=== PATIENT | female | born 1990 | race Caucasian/White ===

== ENCOUNTER 2016-12-20 23:52 | Emergency (ER) | payer BC ==
[~2016-12-20 23:52] MED LIST: BACT800T5 PO; DOXY1CAP74 PO; LO LTAB PO
[2016-12-20 23:54] VITALS: BP 130/81; PULSE 79; RESP 16; TEMP 98; O2SAT 98
[2016-12-21] MEDS ORDERED: ONDANSETRON HCL 4 MG/2 ML VIAL IV ONE (01:00)
[2016-12-21] MEDS ORDERED: SODIUM CHLOR 0.9% 1000 ML INJ 1,000 ML IV ONE ×2 (01:00→03:00)
--- NOTE | 2016-12-21 01:00 | PD ---
HPI Chief Complaint: GI Complaint Time Seen by Provider: 00:45 Travel History International Travel<30 days: No Contact w/Intl Traveler<30days: No Traveled to known affect area: No History of Present Illness HPI The patient is a 25 year old female who presents to the [facility] emergency department with a history of recent relapsing with polysubstance abuse. The patient reports that she became concerned when she developed nausea and vomiting over the last 4 days that has been intractable. She reports that she's had nausea and vomiting intermittently related to her opiate use and cocaine use, however this has been persistent. She reports that she has not been able to keep down any liquids. She reports that today she's had nausea and vomiting 6. She denies having any diarrhea. Her last bowel movement was reportedly 5 days ago. She reports that she had been clean of using drugs for 10 months when she relapsed. She reports that she has been using heroin, Dilaudid, methamphetamines, and cocaine. On review of systems, she reports that she gets chest pain and shortness of breath with the nausea and vomiting. Otherwise, the patient denies any fevers, cough, congestion, neck pain, abdominal pain, urinary symptoms, or neurologic symptoms. The patient reports that she last used IV heroin and methamphetamine a few hours prior to arrival. LMP: Approximately a month ago [facility] Past Medical History Narrative Medical The patient's past medical history is significant for polysubstance abuse since 20 years of age. Medical History: Denies Significant Hx Diminished Hearing: No ?: Unknown LMP: 11/18/16 Past Surgical History Narrative Surgical The patient's past surgical history is significant for wisdom teeth extraction. Surgical History: No Previous Surgery Social History Alcohol Use: No Tobacco Use: No Substance Use: Yes (OPIATES, HERION, CRACK/COCAINE, METH ) Allergies-Medications (Allergen,Severity, Reaction): Coded Allergies: No Known Allergies (Unverified , 11/09/16) Reported Meds & Prescriptions Reported Meds & Active Scripts Active Bactrim DS (Sulfamethoxazole-Trimethoprim) 800-160 Mg Tab 1 Tab PO BID Reported Doxycycline 40 Mg Cap 40 Mg PO DAILY Lo Loestrin Fe 10 (Norethindrone-Ethinyl Estradiol-Fe) 1-10 Mg-Mcg Tab 1 Tab PO DAILY Narrative Medication doxy for acne. Review of Systems Except as stated in HPI: all other systems reviewed are Neg General / Constitutional: No: Fever Eyes: No: Visual changes HENT: No: Headaches Cardiovascular: No: Chest Pain or Discomfort Respiratory: No: Shortness of Breath Gastrointestinal: Positive: Nausea, Vomiting, Abdominal Pain, Constipation, Changes in Bowel Habits, No: Diarrhea, Hematemesis, Hematochezia, Indigestion, Loss of Appetite Genitourinary: No: Dysuria Musculoskeletal: No: Pain Skin: No Rash Neurologic: No: Weakness Psychiatric: No: Depression Endocrine: No: Polydipsia Hematologic/Lymphatic: No: Easy Bruising Physical Exam Narrative General: The patient is well-developed well-nourished female in no acute distress. Head and Neck exam: Head is normocephalic atraumatic. Eyes: EOMI, pupils are equal round and reactive to light. Nose: Midline septum with pink mucous membranes Mouth: Dentition unremarkable. Moist mucus membranes. Posterior oropharynx is not erythematous. No tonsillar hypertrophy. Uvula midline. Airway patent. Neck: No palpable lymphadenopathy. No nuchal rigidity. No thyromegaly. No spinous process tenderness to palpation, no step-off or crepitus, no erythema or ecchymosis. Cardiovascular: Regular rate and rhythm without murmurs, gallops, or rubs. No pulse deficit to the extremities. Lungs: Clear to auscultation bilaterally. No wheezes, rhonchi, or rales. Abdomen: Soft, with midepigastric discomfort on palpation, no other tenderness on palpation of the other quadrants of the abdomen. No guarding, rebound, or rigidity. No tenderness on palpation of McBurney's point. Normal bowel sounds are audible. Negative [place] sign. Extremities: No clubbing, cyanosis, or edema. 2+ pulses in all 4 extremities. No calf tenderness on palpation. Back: No spinous process tenderness to palpation. No costovertebral angle tenderness to palpation. Neurologic Exam: Grossly nonfocal. Skin Exam: No rash noted. Intact skin that is warm and dry. Data Data Last Documented VS Vital Signs Date Time Temp Pulse Resp B/P Pulse Ox O2 Delivery O2 Flow Rate FiO2 12/21/16 01:07 18 99 Room Air 12/20/16 23:54 98.0 79 130/81 Orders Complete Blood Count With Diff (12/21/16 00:47) Comprehensive Metabolic Panel (12/21/16 00:47) Lipase (12/21/16 00:47) Urinalysis - C+S If Indicated (12/21/16 00:47) W[place]gren Sedimentation Rate (12/21/16 00:47) Magnesium (Mg) (12/21/16 00:47) Chest, Single Ap (12/21/16 00:47) Iv Access Insert/Monitor (12/21/16 00:47) Ecg Monitoring (12/21/16 00:47) Oximetry (12/21/16 00:47) Ed Urine Pregnancytest Poc (12/21/16 00:47) Drug Screen, Random Urine (12/21/16 00:47) Alcohol (Ethanol) (12/21/16 00:47) Sodium Chlor 0.9% 1000 Ml Inj (Ns 1000 M (12/21/16 01:00) Ondansetron Inj (Zofran Inj) (12/21/16 01:00) Labs Laboratory Tests Test 12/21/16 01:04 White Blood Count 10.6 TH/MM3 Red Blood Count 4.64 MIL/MM3 Hemoglobin 13.5 GM/DL Hematocrit 39.5 % Mean Corpuscular Volume 85.1 FL Mean Corpuscular Hemoglobin 29.2 PG Mean Corpuscular Hemoglobin 34.3 % Concent Red Cell Distribution Width 12.0 % Platelet Count 315 TH/MM3 Mean Platelet Volume 7.4 FL Neutrophils (%) (Auto) 75.8 % Lymphocytes (%) (Auto) 11.9 % Monocytes (%) (Auto) 10.8 % Eosinophils (%) (Auto) 0.8 % Basophils (%) (Auto) 0.7 % Neutrophils # (Auto) 8.0 TH/MM3 Lymphocytes # (Auto) 1.3 TH/MM3 Monocytes # (Auto) 1.1 TH/MM3 Eosinophils # (Auto) 0.1 TH/MM3 Basophils # (Auto) 0.1 TH/MM3 CBC Comment DIFF FINAL Differential Comment Erythrocyte Sedimentation Rate 19 mm/hr Sodium Level 135 MEQ/L Potassium Level 4.3 MEQ/L Chloride Level 95 MEQ/L Carbon Dioxide Level 28.7 MEQ/L Anion Gap 11 MEQ/L Blood Urea Nitrogen 22 MG/DL Creatinine 1.02 MG/DL Estimat Glomerular Filtration 67 ML/MIN Rate Random Glucose 78 MG/DL Calcium Level 9.5 MG/DL Magnesium Level 2.4 MG/DL Total Bilirubin 2.2 MG/DL Aspartate Amino Transf 38 U/L (AST/SGOT) Alanine Aminotransferase 34 U/L (ALT/SGPT) Alkaline Phosphatase 76 U/L Total Protein 8.9 GM/DL Albumin 4.2 GM/DL Lipase 87 U/L Ethyl Alcohol Level LESS THAN 3 MG/DL MDM Medical Decision Making Medical Screen Exam Complete: Yes Emergency Medical Condition: Yes Medical Record Reviewed: Yes Interpretation(s) Last Impressions Chest X-Ray 12/21/16 0047 Signed Impressions: Service Date/Time: Wednesday, December 21, 2016 01:06 - CONCLUSION: Normal examination for a patient of this age. Efrain Harding MD Differential Diagnosis Electrolyte derangements, versus dehydration, versus viral syndrome Narrative Course During the course of the patients emergency department visit, the patients history, examination, and differential diagnosis were reviewed with the patient. The patient had IV access obtained and blood work sent for analysis. The patient was placed on a variety lathe operator with oximetry and blood pressure monitoring. The patient was initially provided normal saline 1 L IV fluid bolus, Zofran 4 mg IV. The patients laboratory studies were reviewed and remarkable for a white count of 10.6, hemoglobin 13.5, platelets 3:15 with neutrophils 75.8, monocytes 10.8, sedimentation rate is 19, CMP is remarkable for sodium of 135, chloride 95, BUN 22, creatinine 1.02, GFR 77, total bilirubin 2.2, AST 38, total protein 8.9, lipase 87, alcohol less than 3. The patient was given a second liter of normal saline IV fluids. The patient will be started on oral rehydration therapy. Radiology studies were reviewed and remarkable for a chest x-ray that showed no acute cardiopulmonary disease. The patient has tolerated oral rehydration therapy. The patient will be discharged home on Zofran. The patient is resting comfortably and feels better, is alert and in no distress. The patients results and examination findings were discussed with the patient. The repeat examination is unremarkable and benign. The history, exam, diagnostic testing, and current condition do not suggest any significant pathology to warrant further testing, continued ED treatment, admission, or surgical evaluation at this point. The vital signs have been stable. The patient does not have uncontrollable pain, intractable vomiting, or other significant symptoms. The patient's condition is stable and appropriate for discharge. The patient will pursue further outpatient evaluation with a primary care physician or other designated or consulting physician as indicated in the discharge instructions. The patient expressed understanding and was agreeable with this plan. Diagnosis Primary Impression: Polysubstance abuse Additional Impressions: Mild dehydration Vomiting Qualified Code: R11.2 - Non-intractable vomiting with nausea, unspecified vomiting type Referrals: [facility] 1 day Patient Instructions: Acute Nausea and Vomiting (ED), Dehydration (ED), General Instructions, Polysubstance Abuse (ED) Med/Other Pt SpecificInfo: Prescription(s) given Scripts Ondansetron Odt (Zofran Odt)4 Mg Tab4 Mg SL Q6HR PRN (Nausea/Vomiting) #7 TAB Ref 0 Prov:Claudia Guy MD 12/21/16 Disposition: 01 DISCHARGE HOME Condition: Stable Claudia Guy MD Dec 21, 2016 01:00
[2016-12-21 01:07] VITALS: RESP 18; O2SAT 99
[2016-12-21 01:08] LABS: BASOPHIL # 0.1 TH/MM3 (0-0.2); BASOPHIL % 0.7 % (0.0-2.0); EOSINOPHIL # 0.1 TH/MM3 (0-0.4); EOSINOPHIL % 0.8 % (0.0-4.0); HEMATOCRIT 39.5 % (35.0-46.0); HEMO FLAGS DIFF FINAL; LYMPH % 11.9 % (9.0-44.0); LYMPHOCYTE # 1.3 TH/MM3 (1.0-4.8); MEAN CELL VOLUME 85.1 FL (80.0-100.0); MEAN CORPUSCULAR HEMOGLOBIN 29.2 PG (27.0-34.0); MEAN CORPUSCULAR HGB CONC 34.3 % (32.0-36.0); MONO % 10.8 % (0.0-8.0); NEUT % 75.8 % (16.0-70.0); PLATELET COUNT 315 TH/MM3 (150-450); RED BLOOD COUNT 4.64 MIL/MM3 (4.00-5.30); WHITE BLOOD COUNT 10.6 TH/MM3 (4.0-11.0)
--- NOTE | 2016-12-21 01:28 | RADRPT ---
EXAM DATE/TIME: 12/21/2016 01:06 [place] COMPARISON: No previous studies available for comparison. INDICATIONS : Shortness of breath. MEDICAL HISTORY : None. SURGICAL HISTORY : None. ENCOUNTER: Initial ACUITY: 1 day PAIN SCORE: 2/10 LOCATION: Bilateral chest FINDINGS: A single view of the chest demonstrates the lungs to be symmetrically aerated without evidence of mas s, infiltrate or effusion. The cardiomediastinal contours are unremarkable. Osseous structures are intact. CONCLUSION: Normal examination for a patient of this age. Efrain Harding MD on December 21, 2016 at 1:26 Board Certified Radiologist. This report was verified electronically.
[2016-12-21 01:30] LABS: ALKALINE PHOSPHATASE 76 U/L (45-117); ALT (GPT) 34 U/L (10-53); ANION GAP 11 MEQ/L (5-15); AST (GOT) 38 U/L (15-37); BICARBONATE 28.7 MEQ/L (21.0-32.0); BLOOD UREA NITROGEN 22 MG/DL (7-18); CHLORIDE 95 MEQ/L (98-107); GLOMERULAR FILTRATION RATE 67 ML/MIN (>89); MAGNESIUM 2.4 MG/DL (1.5-2.5); SODIUM (NA) 135 MEQ/L (136-145); TOTAL BILIRUBIN ADULT 2.2 MG/DL (0.2-1.0)
[2016-12-21 01:31] LABS: POTASSIUM 4.3 MEQ/L (3.5-5.1)
[2016-12-21] MEDS ORDERED: ZOFR4TAB3 SL (03:00)
== END 2016-12-21 06:30 | disposition home or self-care (01) ==
LOC: NEPC 23:52
DX: E86.0 Dehydration (principal); R11.2 Nausea with vomiting, unspecified; R07.9 Chest pain, unspecified; R06.02 Shortness of breath; F19.10 Other psychoactive substance abuse, uncomplicated; K59.00 Constipation, unspecified; Z79.899 Other long term (current) drug therapy
CPT/HCPCS: 71010; 80053; 80307; 83690; 83735; 84703; 85025; 85652; 96361; 96374; 99284; J2405; J7030

== ENCOUNTER 2016-12-28 21:01 | Emergency (ER) | payer BC, OTHER ==
[~2016-12-28 21:01] MED LIST changes: +ZOFR4TAB3 SL
[2016-12-28 21:36] VITALS: BP 121/69; PULSE 88; RESP 20; TEMP 98.4; O2SAT 98
--- NOTE | 2016-12-28 21:39 | PD ---
HPI Chief Complaint: Garay act Time Seen by Provider: 21:14 Travel History International Travel<30 days: No Contact w/Intl Traveler<30days: No Traveled to known affect area: No History of Present Illness HPI The patient was seen and examined in the presence of the nurse. This patient presents under police Garay act. They reported that she was feeling suicidal and had threatened to cut her wrists with last. She denies this and denies feeling suicidal. She does admit to treat when IV drug abuse. She denies overdose of any types of pills. Symptoms severity is moderate. No alleviating factors. Duration one week. PFSH Past Medical History Diminished Hearing: No Social History Alcohol Use: No Tobacco Use: No Substance Use: Yes (OPIATES, HERION, CRACK/COCAINE, METH ) Allergies-Medications (Allergen,Severity, Reaction): Coded Allergies: No Known Allergies (Unverified , 12/28/16) Reported Meds & Prescriptions Reported Meds & Active Scripts Active Reported Doxycycline 40 Mg Cap 40 Mg PO DAILY Lo Loestrin Fe 1/10 (Norethindrone-Ethinyl Estradiol-Fe) 1-10 Mg-Mcg Tab 1 Tab PO DAILY Review of Systems General / Constitutional: No: Fever Eyes: No: Visual changes HENT: No: Headaches Cardiovascular: No: Chest Pain or Discomfort Respiratory: No: Shortness of Breath Gastrointestinal: No: Abdominal Pain Genitourinary: No: Dysuria Musculoskeletal: No: Pain Skin: Positive Rash Neurologic: No: Weakness Psychiatric: Positive: Depression, Suicidal Ideations, Substance Abuse Endocrine: No: Polydipsia Hematologic/Lymphatic: No: Easy Bruising Physical Exam Narrative GENERAL: Well-nourished, well-developed patient in no apparent distress. SKIN: Focused skin assessment reveals that her face is diffusely covered with picked at lesions with no nodules present . Skin is Warm and dry. Track beck visible on her arms HEAD: Atraumatic. Normocephalic. EYES: Pupils equal and round. No scleral icterus. No injection or drainage. ENT: No nasal bleeding or discharge. Mucous membranes pink and moist. NECK: Trachea midline. No JVD. CARDIOVASCULAR: Regular rate and rhythm. No murmur appreciated. RESPIRATORY: No accessory muscle use. Clear to auscultation. Breath sounds equal bilaterally. GASTROINTESTINAL: Abdomen soft, non-tender, nondistended. Hepatic and splenic margins not palpable. MUSCULOSKELETAL: No obvious deformities. No clubbing. No cyanosis. No edema. NEUROLOGICAL: Awake and alert. No obvious cranial nerve deficits. Motor grossly within normal limits. Normal speech. PSYCHIATRIC: Depressed mood and flat affect; insight and judgment poor . Data Data Last Documented VS Vital Signs Date Time Temp Pulse Resp B/P Pulse Ox O2 Delivery O2 Flow Rate FiO2 12/28/16 21:36 98.4 88 20 121/69 98 Orders Complete Blood Count With Diff (12/28/16 21:24) Comprehensive Metabolic Panel (12/28/16 21:24) Ed Urine Pregnancytest Poc (12/28/16 21:24) Iv Access Insert/Monitor (12/28/16 21:24) Psych Screen (12/28/16 21:24) Drug Screen, Random Urine (12/28/16 21:24) Alcohol (Ethanol) (12/28/16 21:24) Salicylates (Aspirin) (12/28/16 21:24) Tylenol (Acetaminophen) (12/28/16 21:24) Labs Laboratory Tests Test 12/28/16 22:15 White Blood Count 6.8 TH/MM3 Red Blood Count 4.11 MIL/MM3 Hemoglobin 11.9 GM/DL Hematocrit 34.6 % Mean Corpuscular Volume 84.2 FL Mean Corpuscular Hemoglobin 28.9 PG Mean Corpuscular Hemoglobin 34.4 % Concent Red Cell Distribution Width 12.0 % Platelet Count 217 TH/MM3 Mean Platelet Volume 7.9 FL Neutrophils (%) (Auto) 63.1 % Lymphocytes (%) (Auto) 20.9 % Monocytes (%) (Auto) 12.5 % Eosinophils (%) (Auto) 2.6 % Basophils (%) (Auto) 0.9 % Neutrophils # (Auto) 4.3 TH/MM3 Lymphocytes # (Auto) 1.4 TH/MM3 Monocytes # (Auto) 0.9 TH/MM3 Eosinophils # (Auto) 0.2 TH/MM3 Basophils # (Auto) 0.1 TH/MM3 CBC Comment DIFF FINAL Differential Comment Sodium Level 138 MEQ/L Potassium Level 3.7 MEQ/L Chloride Level 104 MEQ/L Carbon Dioxide Level 28.5 MEQ/L Anion Gap 6 MEQ/L Blood Urea Nitrogen 10 MG/DL Creatinine 0.80 MG/DL Estimat Glomerular Filtration 88 ML/MIN Rate Random Glucose 77 MG/DL Calcium Level 8.9 MG/DL Total Bilirubin 1.2 MG/DL Aspartate Amino Transf 20 U/L (AST/SGOT) Alanine Aminotransferase 22 U/L (ALT/SGPT) Alkaline Phosphatase 76 U/L Total Protein 7.6 GM/DL Albumin 3.7 GM/DL Salicylates Level LESS THAN 1.7 MG/DL Urine Opiates Screen POS Acetaminophen Level LESS THAN 2.0 MCG/ML Urine Barbiturates Screen NEG Urine Amphetamines Screen POS Urine Benzodiazepines Screen NEG Urine Cocaine Screen POS Urine Cannabinoids Screen NEG Ethyl Alcohol Level LESS THAN 3 MG/DL MDM Medical Decision Making Medical Screen Exam Complete: Yes Emergency Medical Condition: Yes Medical Record Reviewed: Yes Differential Diagnosis Depression, suicidal ideation, adjustment disorder, IV drug abuse Narrative Course I have reviewed the patient's electronic medical record. IV placed CBC is normal Metabolic profile is normal LFTs are normal Urine is negative Urine drug screen is positive for 3 different substances Alcohol level is negative Tylenol is negative Aspirin is negative Have ordered psychiatric screening and she is here under Garay act. Patient is is medically stable as can be made. I don't have any clinical suspicion of sepsis or endocarditis. She has no chest complaints or fever. Disposition will be per psychiatry. Diagnosis Primary Impression: Depression with suicidal ideation Additional Impression: Polysubstance abuse Jim Ferrer MD Dec 28, 2016 21:39
[2016-12-28 22:30] LABS: AUTOMATED NEUTROPHIL # 4.3 TH/MM3 (1.8-7.7); BASOPHIL # 0.1 TH/MM3 (0-0.2); BASOPHIL % 0.9 % (0.0-2.0); EOSINOPHIL # 0.2 TH/MM3 (0-0.4); EOSINOPHIL % 2.6 % (0.0-4.0); HEMATOCRIT 34.6 % (35.0-46.0); HEMO FLAGS DIFF FINAL; LYMPH % 20.9 % (9.0-44.0); LYMPHOCYTE # 1.4 TH/MM3 (1.0-4.8); MEAN CELL VOLUME 84.2 FL (80.0-100.0); MEAN CORPUSCULAR HEMOGLOBIN 28.9 PG (27.0-34.0); MEAN CORPUSCULAR HGB CONC 34.4 % (32.0-36.0); MONO % 12.5 % (0.0-8.0); NEUT % 63.1 % (16.0-70.0); PLATELET COUNT 217 TH/MM3 (150-450); RED BLOOD COUNT 4.11 MIL/MM3 (4.00-5.30); WHITE BLOOD COUNT 6.8 TH/MM3 (4.0-11.0)
[2016-12-28 22:36] LABS: AMPHETAMINE, URINE POS (NEG); BARBITURATES, URINE NEG (NEG); COCAINE, URINE POS (NEG)
[2016-12-28 22:48] LABS: ALT (GPT) 22 U/L (10-53); ANION GAP 6 MEQ/L (5-15); AST (GOT) 20 U/L (15-37); BICARBONATE 28.5 MEQ/L (21.0-32.0); BLOOD UREA NITROGEN 10 MG/DL (7-18); CHLORIDE 104 MEQ/L (98-107); GLOMERULAR FILTRATION RATE 88 ML/MIN (>89); POTASSIUM 3.7 MEQ/L (3.5-5.1); SODIUM (NA) 138 MEQ/L (136-145)
[2016-12-28 22:50] LABS: ALKALINE PHOSPHATASE 76 U/L (45-117); TOTAL BILIRUBIN ADULT 1.2 MG/DL (0.2-1.0)
[2016-12-28 22:53] LABS: ACETAMINOPHEN LESS THAN 2.0 MCG/ML (10.0-30.0)
[2016-12-29 07:02] VITALS: BP 150/90; PULSE 113; RESP 17; O2SAT 99
--- NOTE | 2016-12-29 14:34 | PD ---
History of Present Illness Chief Complaint: Psychiatric Symptoms Time Seen by Provider: 14:15 Travel History International Travel<30 Days: No Contact w/Intl Traveler<30days: No Known affected area: No Legal Status Legal Status: Garay Act Garay Act Signed By: Celina Guerrier Garay Act Comment: 2016 @ (NO TIME ON GARAY ACT) History of Present Illness: History of Present Illness HPI The patient is a 26 year old female with history of substance use disorder including but not limited to cocaine, heroin, amphetamines. This patient presents under police Garay act and the report alleges that she attempted to cut her wrist with a piece of broken glass from a window. She was involved in an argument with her boyfriend and left the house later being found by the police with a narcotic in her possession . The patient did not make any attempt at harming herself and denies that she was suicidal. She states that her fiancee reported that to the police so that she could be brought here to the hospital since she had a relapse and has bee using substances for the past 2 months. Patient was monitored in J pod and she presented no behavioral concerns and no suicidality. EMR reviewed. No previous contact with [facility] psychiatry dept. I have spoken with her father and mother who are planning to have the patient transported to a substance abuse treatment facility in [facility] today. The patient is alert and oriented. She does not present any psychiatric symptomatology. There is no suicidal or homicidal ideation. She is verbalizing her interest in going to treatment once discharged from ed. [facility] Past Medical History Medical History: Denies Significant Hx Diminished Hearing: No ?: Not Past Surgical History Surgical History: No Previous Surgery Psychiatric History Psychiatric History Hx Psychiatric Treatment: DENIES History of Inpatient Treatment: No Guns or firearms in home: No Social History Single female.lives with her boyfriend. Hx Alcohol Use: No Hx Tobacco Use: No Hx Substance Use: Yes Substance Use Type: Alcohol, Amphetamines-Stimulants, Heroin, Cocaine, Synth Opiates-Pain Pills Hx of Substance Use Treatment: Yes (Has had several admissions to substance abuse treatmetn facilities. Longest period of sobriety is 10 months.) Family Psychiatric History Negative Allergies-Medications (Allergen,Severity, Reaction): Coded Allergies: No Known Allergies (Unverified , 12/28/16) Reported Meds & Prescriptions Reported Meds & Active Scripts Active Reported Doxycycline 40 Mg Cap 40 Mg PO DAILY Lo Loestrin Fe 06/14 (Norethindrone-Ethinyl Estradiol-Fe) 1-10 Mg-Mcg Tab 1 Tab PO DAILY Review of Systems Except as stated in HPI: all other systems reviewed are Neg Constitutional: COMPLAINS OF: Weight loss Endocrine: DENIES: Abnorml menstrual pattern, Heat/cold intolerance, Polydipsia , Polyuria, Polyphagia Eyes: DENIES: Blurred vision, Diplopia, Eye inflammation, Eye pain, Vision loss , Photosensitivity, Double Vision Gastrointestinal: COMPLAINS OF: Abdominal pain, Nausea Exam Alert: Yes Lucan: Person (ox4) Mood: Calm Affect: Appropriate Speech: Clear, Logical Eye Contact: Normal Memory Intact: Comment (No impairment) Hallucinations: Other (Negative) Delusions: No Suicidal: Ideation (denies any) Homicidal: Ideation (deneis any) Insight/Judgement fair. not impaired MDM Medical Decision Making Medical Record Reviewed: Yes Assessment/Plan The patient is a 26 year old female with history of substance use disorder including but not limited to cocaine, heroin, amphetamines. This patient presents under police Garay act and the report alleges that she attempted to cut her wrist with a piece of broken glass from a window. She was involved in an argument with her boyfriend and left the house later being found by the police with a narcotic in her possession . The patient did not make any attempt at harming herself and denies that she was suicidal. She states that her fiancee reported that to the police so that she could be brought here to the hospital since she had a relapse and has bee using substances for the past 2 months. At this time this patient does not meet BA criteria. Discharged to be transported to treatment facility by a friend. Arrangements were made by the family. Orders Complete Blood Count With Diff (12/28/16 21:24) Comprehensive Metabolic Panel (12/28/16 21:24) Ed Urine Pregnancytest Poc (12/28/16 21:24) Iv Access Insert/Monitor (12/28/16 21:24) Psych Screen (12/28/16 21:24) Drug Screen, Random Urine (12/28/16 21:24) Alcohol (Ethanol) (12/28/16 21:24) Salicylates (Aspirin) (12/28/16 21:24) Tylenol (Acetaminophen) (12/28/16 21:24) Diet Regular Basic (12/29/16 Lunch) Results Vital Signs Date Time Temp Pulse Resp B/P Pulse Ox O2 Delivery O2 Flow Rate FiO2 12/29/16 07:02 113 17 150/90 99 Room Air 12/28/16 21:36 98.4 88 20 121/69 98 Laboratory Tests Test 12/28/16 22:15 White Blood Count 6.8 Red Blood Count 4.11 Hemoglobin 11.9 Hematocrit 34.6 Mean Corpuscular Volume 84.2 Mean Corpuscular Hemoglobin 28.9 Mean Corpuscular Hemoglobin 34.4 Concent Red Cell Distribution Width 12.0 Platelet Count 217 Mean Platelet Volume 7.9 Neutrophils (%) (Auto) 63.1 Lymphocytes (%) (Auto) 20.9 Monocytes (%) (Auto) 12.5 Eosinophils (%) (Auto) 2.6 Basophils (%) (Auto) 0.9 Neutrophils # (Auto) 4.3 Lymphocytes # (Auto) 1.4 Monocytes # (Auto) 0.9 Eosinophils # (Auto) 0.2 Basophils # (Auto) 0.1 CBC Comment DIFF FINAL Differential Comment Sodium Level 138 Potassium Level 3.7 Chloride Level 104 Carbon Dioxide Level 28.5 Anion Gap 6 Blood Urea Nitrogen 10 Creatinine 0.80 Estimat Glomerular Filtration 88 Rate Random Glucose 77 Calcium Level 8.9 Total Bilirubin 1.2 Aspartate Amino Transf 20 (AST/SGOT) Alanine Aminotransferase 22 (ALT/SGPT) Alkaline Phosphatase 76 Total Protein 7.6 Albumin 3.7 Salicylates Level LESS THAN 1.7 Urine Opiates Screen POS Acetaminophen Level LESS THAN 2.0 Urine Barbiturates Screen NEG Urine Amphetamines Screen POS Urine Benzodiazepines Screen NEG Urine Cocaine Screen POS Urine Cannabinoids Screen NEG Ethyl Alcohol Level LESS THAN 3 Diagnosis Primary Impression: Polysubstance abuse Ruled Out: Depression with suicidal ideation Psychiatrically Cleared: Yes Med/ Other Pt Specific Info: No Meds Exist/No RX given Disposition: 01 DISCHARGE HOME Condition: Stable Key Abbasi [facility] Dec 29, 2016 14:34
[2016-12-29 14:42] VITALS: BP 130/63; PULSE 95; RESP 18; O2SAT 100
[2016-12-29] MEDS ORDERED: IBUPROFEN 400 MG TAB PO ONE (14:45)
== END 2016-12-29 15:46 ==
LOC: NEPD 21:01 → NEPJ 12-29 15:46
DX: F19.10 Other psychoactive substance abuse, uncomplicated (principal); Z79.899 Other long term (current) drug therapy
CPT/HCPCS: 80053; 80307; 84703; 85025; 99284